=== PATIENT | male | born 1945 | race Caucasian/White ===

== ENCOUNTER → 2021-04-04 | Outpatient (CLI) | payer SELFPAY ==
[~2021-04-04] MED LIST: ASPIRIN 325MG325 MG PO; ASPIRIN EC81 MG PO; ATORVASTATIN CA20 MG PO; CLOPIDOGREL75 MG PO; EFFIENT10 MG PO; FAMOTIDINE20 MG PO; GLIMEPIRIDE4 MG PO; GLUCOPHAGE 500500 MG PO; HYDROCHLOROTHIA25 MG PO; IMDUR ER TAB 3030 MG PO; LISINOPRIL30 MG PO; LOPRESSOR 25 MG25 MG PO; MULTIVITAMINS1 EAC1 PO; NITROGLYCERIN0.4 MG SL; PANTOPRAZOLE SO40 MG PO; TENORMIN 50 MG50 MG PO
== END ==
LOC: HEART 5 13:12
DX: R06.02 Shortness of breath (principal); J60 Coalworker's pneumoconiosis; R94.2 Abnormal results of pulmonary function studies
CPT/HCPCS: 94060; 94729